=== PATIENT | male | born 1970 | race Caucasian/White ===

== ENCOUNTER 2018-05-21 07:13 | Day surgery (SDC) | payer SELFPAY ==
[2018-05-21 09:56] VITALS: BP 118/81
== END 2018-05-21 09:23 | disposition home or self-care (01) | DRG 951 ==
LOC: ENDO 07:13
PROVIDERS: ATTEND Surgery
PROC: 0DJD8ZZ Inspection of Lower Intestinal Tract, Via Natural or Artificial Opening Endoscopic (ICD-10-PCS; principal; 2018-05-21)
DX: Z12.11 Encounter for screening for malignant neoplasm of colon (principal); Z86.010 Personal history of colon polyps